=== PATIENT | female | born 1950 | race Asian ===

== ENCOUNTER 2017-03-19 05:41 | Observation (INO) | payer OTHER ==
[~2017-03-19] VITALS: Ht 167.6 cm; Wt 59.4 kg
--- NOTE | 2017-03-19 06:10 | NUR ---
PT BIB [facility] FOR C/O BACK PAIN AND MUSCLE SPAMS THAT WOKE HER UP OUT OF BED, PT AAOX4, RESP E/U ,PT HOOKED UP TO CA MONITOR PT FAMILY AT BEDSIDE, PT IN NAD NOTED AT THIS TIME.
--- NOTE | 2017-03-19 06:13 | NUR ---
MSE COMPLETED BY DR SHEPPARD
--- NOTE | 2017-03-19 07:05 | NUR ---
US AT BEDSIDE
--- NOTE | 2017-03-19 07:06 | NUR ---
PT MEDICATED PER MD ORDERS FOR INCREASED PAIN WHILE ATTEMPTING TO PROVIDE URINE SAMPLE.
[2017-03-19 07:13] LABS: CALCIUM 8.7 mg/dL (8.5-10.1); CARBON DIOXIDE 26.4 mmol/L (21-32); CHLORIDE SERUM 101 mmol/L (98-107); CREATININE SERUM 0.8 mg/dL (0.6-1.0); GFR1 > 60 mL/min; GLUCOSE SERUM 112 mg/dL (74-106); POTASSIUM SERUM 4.1 mmol/L (3.5-5.1); SODIUM SERUM 133 mmol/L (136-145)
--- NOTE | 2017-03-19 07:13 | NUR ---
US AT BEDSIDE; ASSUMED CARE OF PT FROM VALENTIN JAIMES
--- NOTE | 2017-03-19 07:14 | NUR ---
REPORT GIVEN TO REBEKAH TO ASSUME CARE OF PT
--- NOTE | 2017-03-19 07:26 | NUR ---
PT UNABLE TO GIVE URINE SAMPLE AT THIS TIME, PT STILL HAVING BACK SPASMS BUT REPORTS COMFORT LAYING SUPINE
[2017-03-19 07:29] LABS: ALKALINE PHOSPHATASE 97 U/L (46-116); ALT/SGPT 22 U/L (14-59); AST/SGOT 19 U/L (15-37); BILIRUBIN TOTAL 0.5 mg/dL (0.20-1.00); TOTAL PROTEIN, SERUM 7.7 g/dL (6.4-8.2)
[2017-03-19 07:30] LABS: ALBUMIN 3.3 g/dL (3.4-5.0)
[2017-03-19 07:31] LABS: BASOPHIL % 0.3 % (0-2); PLATELET COUNT 184 x10^3mcL (130-400); RED CELL DISTRIBUTION WIDTH 13.6 % (11.5-14.5)
--- NOTE | 2017-03-19 07:43 | NUR ---
PT WAS ABLE TO VOID USING BED DIAZ, URINE SENT TO LAB
[2017-03-19] MEDS ORDERED: T3 PO (07:44)
[2017-03-19] MEDS ORDERED: DEXAMETHASONE2 MG PO (07:44)
[2017-03-19] MEDS ORDERED: HUMALOG KW100 UNIT/1 SQ (07:45)
[2017-03-19] MEDS ORDERED: NEU300 PO (07:45)
[2017-03-19] MEDS ORDERED: LANTUS SOLOS100 U/M1 SC (07:46)
[2017-03-19] MEDS ORDERED: SYNTHROID0.15 MG PO (07:47)
[2017-03-19] MEDS ORDERED: KEPPRA500 MG PO (07:47)
[2017-03-19] MEDS ORDERED: SENEXON8.6 MG PO (07:48)
[2017-03-19] MEDS ORDERED: [UNRECOGNIZED DRUG - CODE] DE (07:48)
[2017-03-19] MEDS ORDERED: PROTONIX40 MG/Pac1 PO (07:48)
[2017-03-19] MEDS ORDERED: TOPAMAX25 MG PO (07:49)
[2017-03-19] MEDS ORDERED: SERTRALINE50 M1 PO (07:49)
[2017-03-19] MEDS ORDERED: TRAZODONE50 M1 PO (07:49)
[2017-03-19] MEDS ORDERED: NOR5 PO (08:16)
[2017-03-19 08:17] LABS: UA SPECIFIC GRAVITY <=1.005 (1.005-1.035)
[2017-03-19 08:18] LABS: microscopic required? YES; urine erythrocyte TRACE (NEGATIVE)
--- NOTE | 2017-03-19 08:39 | NUR ---
REPORT TO ANGELICA JAIMES TO ASSUME CARE
--- NOTE | 2017-03-19 09:00 | NUR ---
RECEIVED PATIENT FROM ED VIA GUERNEY, IV DISLODGED WITH CATH INTACT DURING TRANSFER FROM [facility] TO BED, BANDAID APPLIED AND WILL START NEW IV. PATIENT A/O, ABLE TO MAKE NEEDS KNOWN. BACK PAIN PRESENT, WORSENS UPON MOVEMENT. LYING SUPINE ON BED, HOB NOT ELEVATED, STATES MOST COMFORTABLE POSITION AT THIS TIME. DAUGHTER AT BEDSIDE. V/S TAKEN. ORIENTED PATIENT TO ROOM AND CALL LIGHT WITHIN REACH.
[2017-03-19 09:09] LABS: MAGNESIUM 2.1 mg/dL (1.8-2.4); PHOSPHOROUS 3.1 mg/dL (2.5-4.9)
[2017-03-19 09:19] LABS: FREE T4 1.3 ng/dL (0.76-1.46); FREE THYROXINE INDEX 3.6 ug/dL (1.4-4.5); T4(THYROXINE) 10.5 ug/dL (4.7-13.3)
[2017-03-19 10:49] VITALS: BP 127/68
[2017-03-19 11:01] LABS: T3 TOTAL 1.17 ng/mL
--- NOTE | 2017-03-19 11:45 | NUR ---
NORCO GIVEN FOR PAIN TO BACK 5/10, WORSENS WITH ANY MOVEMENT. K-PAD TO BACK PROVIDED PER DR HUNG. DR SILVA REQUESTING FOR MEDICAL RECORDS FROM PCP, WILL CHECK. WILL CONT TO MONITOR.
--- NOTE | 2017-03-19 13:35 | NUR ---
PATIENT STATES NORCO EFFECTIVE FOR BACK PAIN, STILL SOME PAIN UPON MOVEMENT BUT STATES SPASMS ARE GONE. US TECHS AT BEDSIDE FOR PAKO/ART.
--- NOTE | 2017-03-19 13:55 | NUR ---
PATIENT HAD 1 VOMIT EPISODE, CLEAR SMALL AMOUNT. STATES ONLY ATE [place] PIECE DURING LUNCH TIME AND WATER. ZOFRAN OFFERED, PATIENT DENIES FEELING NAUSEA. WILL CONT TO MONITOR.
[2017-03-19 14:12] VITALS: BP 132/66
--- NOTE | 2017-03-19 16:15 | NUR ---
RECEIVED CONSENT FOR HEALTH INFO DISCLOSURE FROM PATIENT TO OBTAIN MEDICAL RECORDS FOR PCP DR DEL CASTILLO PER DR HUNG. RESULTS FAXED, DR SILVA MADE AWARE.
--- NOTE | 2017-03-19 16:36 | NUR ---
PATIENT REQUESTING TO CONTINUE GIVING NORCO, PAIN PRESENT TO BACK WITHOUT SPASMS. NORCO DUE AND GIVEN. DR SILVA MADE AWARE THAT NORCO IS EFFECTIVE FOR PAIN AT THIS TIME. MILD RELIEF WITH KPAD.
[2017-03-19 17:08] VITALS: BP 130/68
--- NOTE | 2017-03-19 17:41 | NUR ---
PATIENT AMBULATED TO RESTROOM TO VOID WITH SLOW BUT STEADY GAIT UNDER MINIMAL ASSIST. DAUGHTER IN ROOM. PATIENT STATES FEELING SORENESS TO BACK BUT NO SPASMS AT THIS TIME. NOW SITTING UP AT EDGE OF BED FOR DINNER MEAL. WILL CONT TO MONITOR.
[2017-03-19 19:10] VITALS: BP 121/59
--- NOTE | 2017-03-19 19:10 | NUR ---
RECEIVED PT AWAKE ALERT AND VERBALLY RESPONSIVE.K-PAD TO BACK IN PLACED AND VERBALIZED RELIEF.C/O SORENESS TO BACK.BP 121/59 MMHG,HR 63.WILL CONTINUE TO MONITOR.
--- NOTE | 2017-03-20 04:50 | NUR ---
PT SLEPT WELL ALL NIGHT.ASSISTED TO BR NEEDED AND TOLERATED WELL.K-PAD TO BACK WITH RELIEF.MEDICATED X1 WITH ZOFRAN FOR VOMITING WITH GOOD RESULT.NO N/V NOTED AT THIS TIME.DENIES ANY PAIN OR DISCOMFORT.ALL NEEDS MET.WILL CONTINUE TO MONITOR.
[2017-03-20 05:04] VITALS: BP 112/55
[2017-03-20 07:00] LABS: BASOPHIL % 0.5 % (0-2); PLATELET COUNT 183 x10^3mcL (130-400); RED CELL DISTRIBUTION WIDTH 13.6 % (11.5-14.5)
[2017-03-20 07:22] LABS: CALCIUM 8.7 mg/dL (8.5-10.1); CARBON DIOXIDE 27.5 mmol/L (21-32); CHLORIDE SERUM 105 mmol/L (98-107); CREATININE SERUM 0.7 mg/dL (0.6-1.0); GFR1 > 60 mL/min; GLUCOSE SERUM 84 mg/dL (74-106); POTASSIUM SERUM 4.2 mmol/L (3.5-5.1); SODIUM SERUM 140 mmol/L (136-145)
[2017-03-20 10:14] VITALS: BP 152/76
--- NOTE | 2017-03-20 11:48 | NUR ---
PATIENT A/O, RESPONSIVE AND ABLE TO MAKE NEEDS KNOWN. DENIES HEADACHE. STATES PAIN TO BACK MINIMAL "JUST SORE", KPAD TO BACK EFFECTIVE, NOT REQUESTING FOR PAIN MED AT THIS TIME. TELE 30, DENIES CP. PULSES PALPABLE, NO EDEMA NOTED, ABLE TO MOVE ALL EXTREMITIES. NO RESP DISTRESS NOTED ON RA. BOWEL SOUNDS ACTIVE, DENIES N/V, NO BM YET. SKIN INTACT. IV ACCESS TO RFA RUNNING NS INFUSING WELL SITE WNL. CALL LIGHT WITHIN REACH.
--- NOTE | 2017-03-20 12:10 | NUR ---
PHYSICAL THERAPISTS WITH PATIENT AMBULATING IN HALLWAY.
[2017-03-20] MEDS ORDERED: CYCLOBENZAPRINE5 MG PO (13:33)
[2017-03-20] MEDS ORDERED: NOR10T PO (13:34)
[2017-03-20 13:54] VITALS: BP 152/76
[2017-03-20 14:08] VITALS: BP 135/66
--- NOTE | 2017-03-20 14:37 | NUR ---
DISCHARGE INSTRUCTIONS AND PRESCRIPTION GIVEN, PATIENT VERBALIZED UNDERSTANDING WITH DAUGHTER AT BEDSIDE. IV DC'D CATH INTACT. TELE RETURNED TO TECH STATION. ALL QUESTIONS ANSWERED. BRAZER RESISTANCE MADE AWARE THAT PATIENT READY.
== END 2017-03-20 14:40 | disposition home or self-care (01) | DRG 436 ==
LOC: ED 05:41 → DU 08:09
PROVIDERS: Emergency Medicine; ADMIT Family Medicine
DX: C24.1 Malignant neoplasm of ampulla of Vater (principal); E87.1 Hypo-osmolality and hyponatremia; E44.0 Moderate protein-calorie malnutrition; E11.51 Type 2 diabetes mellitus with diabetic peripheral angiopathy without gangrene; I10 Essential (primary) hypertension; R31.9 Hematuria, unspecified; Z68.22 Body mass index [BMI] 22.0-22.9, adult
CPT/HCPCS: 82962; 83880; 84439; G0378; J1100; J1885; J2270; J2405; J2800; J3010; J7030; Q0092

== ENCOUNTER 2018-01-20 23:30 | Observation (INO) | payer OTHER ==
[~2018-01-20] VITALS: Ht 165.1 cm; Wt 52.4 kg
[~2018-01-20 23:30] MED LIST: CYCLOBENZAPRINE5 MG PO; DEXAMETHASONE2 MG PO; HUMALOG KW100 UNIT/1 SQ; KEPPRA500 MG PO; LANTUS SOLOS100 U/M1 SC; NEU300 PO; NOR10T PO; NOR5 PO; PROTONIX40 MG/Pac1 PO; SENEXON8.6 MG PO; SERTRALINE50 M1 PO; SYNTHROID0.15 MG PO; T3 PO; TOPAMAX25 MG PO; TRAZODONE50 M1 PO; [UNRECOGNIZED DRUG - CODE] DE
[2018-01-20 23:34] VITALS: Ht 165.1 cm; Wt 52.4 kg
[2018-01-21 00:14] LABS: BASOPHIL % 0.3 % (0-2); PLATELET COUNT 194 x10^3mcL (130-400)
[2018-01-21 00:17] LABS: RED CELL DISTRIBUTION WIDTH 17.6 % (11.5-14.5)
[2018-01-21 00:23] LABS: CALCIUM 8.4 mg/dL (8.5-10.1); CARBON DIOXIDE 25.3 mmol/L (21-32); CHLORIDE SERUM 103 mmol/L (98-107); CREATININE SERUM 0.7 mg/dL (0.6-1.0); GFR1 > 60 mL/min; GLUCOSE SERUM 144 mg/dL (74-106); POTASSIUM SERUM 3.4 mmol/L (3.5-5.1); SODIUM SERUM 140 mmol/L (136-145)
[2018-01-21 00:27] LABS: ALBUMIN 3.6 g/dL (3.4-5.0); ALKALINE PHOSPHATASE 109 U/L (46-116); ALT/SGPT 19 U/L (14-59); AMYLASE 87 U/L (25-115); AST/SGOT 24 U/L (15-37); BILIRUBIN TOTAL 0.5 mg/dL (0.20-1.00); LIPASE 78 IU/L (73-393); TOTAL PROTEIN, SERUM 7.8 g/dL (6.4-8.2)
[2018-01-21 01:39] LABS: microscopic required? YES; urine erythrocyte NEGATIVE (NEGATIVE)
[2018-01-21] MEDS ORDERED: CAPECITABINE150 MG (01:48)
[2018-01-21] MEDS ORDERED: SIMETHICONE (01:49)
[2018-01-21 02:28] VITALS: BP 124/56
[2018-01-21 05:42] VITALS: BP 116/64
[2018-01-21 08:41] VITALS: BP 115/60
[2018-01-21 13:04] VITALS: BP 117/58
[2018-01-21 16:55] VITALS: BP 123/61
[2018-01-21 21:10] VITALS: BP 135/67
[2018-01-22] VITALS (7 sets, daily range): BP systolic 108–145; BP diastolic 53–69
[2018-01-22 06:18] LABS: BASOPHIL % 0.7 % (0-2); PLATELET COUNT 181 x10^3mcL (130-400)
[2018-01-22 06:26] LABS: RED CELL DISTRIBUTION WIDTH 17.3 % (11.5-14.5)
[2018-01-22 06:57] LABS: CALCIUM 9.3 mg/dL (8.5-10.1); CARBON DIOXIDE 25.8 mmol/L (21-32); CHLORIDE SERUM 107 mmol/L (98-107); CREATININE SERUM 0.7 mg/dL (0.6-1.0); GFR1 > 60 mL/min; GLUCOSE SERUM 87 mg/dL (74-106); MAGNESIUM 2.1 mg/dL (1.8-2.4); POTASSIUM SERUM 4.1 mmol/L (3.5-5.1); SODIUM SERUM 142 mmol/L (136-145)
== END 2018-01-22 18:55 | disposition home or self-care (01) | DRG 389 ==
LOC: ED 23:30 → MU 01-21 01:42
PROVIDERS: Emergency Medicine; Internal Medicine Pulmonary Disease
DX: K56.7 Ileus, unspecified (principal); C25.9 Malignant neoplasm of pancreas, unspecified; Z68.1 Body mass index [BMI] 19.9 or less, adult; I10 Essential (primary) hypertension
CPT/HCPCS: 83880; G0378; J2765; J3010; J3480; J7030; J7042; Q0092; Q9967